=== PATIENT | male | born 2000 | race Caucasian/White ===

== ENCOUNTER 2020-04-19 14:53 | Emergency (ER) | payer BC ==
[2020-04-19 15:28] VITALS: BP 125/80; PULSE 89; O2SAT 99
--- NOTE | 2020-04-19 15:42 | ERPHSYRPT ---
- History of Present Illness Time Seen by Provider: 04/19/20 15:20 Patient Subjective Stated Complaint: Left knee injury Triage Nursing Assessment: Patient brought back to ED via w/c and transferred self to bed. Patient A+O X3. Patient's skin pink, warm and dry. Patient complains of left knee injury after falling 10 foot off of a ladder while carrying a 65 pound motor yesterday. Patient's left knee noted to swollen. Patient complains of constant, throbbing, sharp pain /10. Patient states he is unable to bear weight. Physician History: Patient is a 20-year-old male who fell approximately 10 feet landing on his left knee while carrying a car motor down a ladder. He is unable to bear weight he can with pain raise the leg off the bed. He has some abrasions also to the lower leg. On the left is any other injury or pain Method of Injury: direct blow, fell Occurred: yesterday Quality: constant, throbbing Severity of Pain-Max: severe Severity of Pain-Current: severe Lower Extremities Pain: knee: left (Fusion and swelling with extreme tenderness over the patella) Modifying Factors: Improves With: movement Associated Symptoms: unable to bear weight Allergies/Adverse Reactions: No Known Drug Allergies Allergy (Verified 04/19/20 15:07) Hx Tetanus, Diphtheria Vaccination/Date Given: Yes Hx Influenza Vaccination/Date Given: No Hx Pneumococcal Vaccination/Date Given: No Immunizations Up to Date: Yes Travel Risk - International Travel Have you traveled outside of the country in past 3 weeks: No - Coronavirus Screening Are you exhibiting any of the following symptoms?: No Close contact with a COVID-19 positive Pt in past 14-21 Days: No - Review of Systems Constitutional: No Fever, No Chills Eyes: No Symptoms Ears, Nose, & Throat: No Symptoms Respiratory: No Cough, No Dyspnea Cardiac: No Chest Pain, No Edema, No Syncope Abdominal/Gastrointestinal: No Abdominal Pain, No Nausea, No Vomiting, No Diarrhea Genitourinary Symptoms: No Dysuria Musculoskeletal: Joint Pain, Joint Swelling, No Back Pain, No Neck Pain Skin: No Rash Neurological: No Dizziness, No Focal Weakness, No Sensory Changes Psychological: No Symptoms Endocrine: No Symptoms All Other Systems: Reviewed and Negative - Past Medical History Pertinent Past Medical History: Yes Neurological History: No Pertinent History ENT History: No Pertinent History Cardiac History: Congenital Heart Disease Respiratory History: No Pertinent History Endocrine Medical History: No Pertinent History Musculoskeletal History: No Pertinent History GI Medical History: No Pertinent History History: No Pertinent History Psycho-Social History: No Pertinent History Male Reproductive Disorders: No Pertinent History Other Medical History: VSD as resolved - Past Surgical History Past Surgical History: No - Social History Smoking Status: Current every day smoker How long have you smoked: years Exposure to second hand smoke: No Drug Use: none Patient Lives Alone: No - Nursing Vital Signs Nursing Vital Signs: Initial Vital Signs Temperature 98.3 F 04/19/20 15:08 Pulse Rate 89 04/19/20 15:08 Respiratory Rate 18 04/19/20 15:08 Blood Pressure 125/80 04/19/20 15:08 O2 Sat by Pulse Oximetry 99 04/19/20 15:08 Pain Scale Pain Intensity 7 - Physical Exam General Appearance: mild distress, alert Eyes, Ears, Nose, Throat Exam: moist mucous membranes Neck Exam: non-tender, supple Cardiovascular/Respiratory Exam: chest non-tender, normal breath sounds, regular rate/rhythm, no respiratory distress Gastrointestinal/Abdominal Exam: non-tender, guarding Back Exam: normal inspection, No vertebral tenderness Hips Exam: bilateral: non-tender, normal inspection, normal range of motion Legs Exam: right leg: non-tender, normal inspection, normal range of motion, left leg: abrasions (Abrasions of the anterior lower leg) Knees Exam: left knee: bone tenderness (Especially over the left patella), joint effusion, pain, soft tissue tenderness, swelling Ankle Exam: bilateral ankle: non-tender, normal inspection, normal range of motion Foot Exam: bilateral foot: non-tender, normal inspection, normal range of motion Neuro/Tendon Exam: normal sensation, normal motor functions, normal tendon functions Mental Status Exam: alert, oriented x 3, cooperative Skin Exam: normal color, warm, dry SpO2: 99 Procedures - Splinting Location of Splint: Left, Knee Type of Splint: Other (Knee immobilizer) Splint Applied By: ED Nurse Pre-Proc Neuro Vasc Exam: normal Post-Proc Neuro Vasc Exam: neurovascular intact - Course Nursing assessment & vital signs reviewed: Yes - Radiology Exams Knee X-ray Interpretation: Interpreted by me, Other (X-rays of the left knee and lower leg show a patellar fracture comminuted closed) Ordered Tests: Active Orders 24 hr Category Date Time Status KNEE (3 VIEWS) Stat Exams 04/19/20 15:31 Taken LOWER LEG Stat Exams 04/19/20 15:14 Taken - Progress Progress: improved - Departure Departure Disposition: Home Clinical Impression: Patella fracture Condition: Stable Critical Care Time: No Additional Instructions: Patient was referred to the orthopedic clinic Forms: Work/School Release Form Prescriptions: Hydrocodone/Acetaminophen [[place] 10-325 Tablet] 1 each PO Q6H 3 Days #12 tablet MDD 4
--- NOTE | 2020-04-19 21:29 | XRAY ---
Indication: Pain following fall off ladder. Comparison: None 3 view left knee demonstrates mildly displaced patella fracture with effusion and anterior soft tissue swelling. No other bony, articular, or soft tissue abnormalities.
--- NOTE | 2020-04-19 21:30 | XRAY ---
Indication: Pain following fall off latter. Comparison: None 2 view left lower leg demonstrates patella fracture reported separately. No other bony, articular, or soft tissue abnormalities.
== END 2020-04-19 15:59 | disposition home or self-care (01) ==
LOC: ED 14:53
DX: S82.002A Unspecified fracture of left patella, initial encounter for closed fracture (principal); W11.XXXA Fall on and from ladder, initial encounter; Y93.9 Activity, unspecified; Y92.9 Unspecified place or not applicable; Q24.9 Congenital malformation of heart, unspecified; Z72.0 Tobacco use
CPT/HCPCS: 73562; 73590; 99284; L1830